=== PATIENT | female | born 1995 | race African-American/Black ===

== ENCOUNTER 2020-11-21 01:53 | Emergency (ER) | payer MEDICAID ==
[~2020-11-21] VITALS: Ht 157.5 cm; Wt 132.0 kg
[2020-11-21] MEDS ORDERED: ACETAMINOPHEN 325MG TABLET PO STA (02:07)
[2020-11-21] MEDS ORDERED: FAMOTIDINE 20MG TABLET PO ONE (02:15)
[2020-11-21 02:31] LABS: BASOPHILS % 0.8 % (0.0-2.0); EOSINOPHILS % 5.1 % (0.0-5.0); HEMATOCRIT. 41.7 % (36.0-48.0); HEMOGLOBIN. 13.7 g/dL (12.0-16.0); LYMPHOCYTES % 40.6 % (20.0-50.0); MEAN CORPUSCULAR VOLUME 82.2 fL (81.0-99.0); MEAN PLATELET VOLUME 7.4 fl (7.4-10.4); MONOCYTES % 8.3 % (2.0-8.0); NEUTROPHILS % 45.2 % (40.0-76.0); PLATELET 249 x1000/uL (130-400); RED BLOOD CELL COUNT 5.08 mill/uL (4.2-5.4); RED CELL DISTRIBUTION WIDTH 14.7 % (11.6-14.6)
[2020-11-21 02:34] LABS: CHLORIDE 111 mEq/L (98-107)
[2020-11-21] MEDS ORDERED: AMOX-494 MT (04:06)
[2020-11-21] MEDS ORDERED: ALBUTEROL 6.7GM HFA INHALER ORI ONE (04:15)
[2020-11-21] MEDS ORDERED: DEXAMETHASONE 2MG TABLET PO ONE (04:15)
[2020-11-21] MEDS ORDERED: AMOXICILLIN 500 MG CAPSULE PO ONE (04:15)
[2020-11-21 05:04] VITALS: BP 110/74
== END 2020-11-21 05:05 | disposition home or self-care (01) ==
LOC: ER 01:53
DX: J45.31 Mild persistent asthma with (acute) exacerbation (principal); J18.9 Pneumonia, unspecified organism; G47.30 Sleep apnea, unspecified; Z98.890 Other specified postprocedural states
CPT/HCPCS: 36415; 71045; 80053; 84484; 85025; 93005; 94640; 99285; J8540; Z7610

== ENCOUNTER 2023-04-23 12:25 | Emergency (ER) | payer MEDICAID ==
[~2023-04-23] VITALS: Ht 167.6 cm; Wt 66.0 kg
[~2023-04-23 12:25] MED LIST: AMOX-494 MT
[2023-04-23 12:38] VITALS: BP 101/68; PULSE 104; RESP 18; TEMP 97.7; O2SAT 100
== END 2023-04-23 18:55 | disposition left against medical advice (07) ==
LOC: ER 13:26
DX: Z76.89 Persons encountering health services in other specified circumstances (principal); Z53.21 Procedure and treatment not carried out due to patient leaving prior to being seen by health care provider
CPT/HCPCS: 99281